=== PATIENT | female | born 1970 | race Caucasian/White ===

== ENCOUNTER → 2016-06-26 | Outpatient (CLI) | payer OTHER | LOC: HYPER 05-15 11:36 | DX: E11.622 Type 2 diabetes mellitus with other skin ulcer (principal); I87.2 Venous insufficiency (chronic) (peripheral); L97.221 Non-pressure chronic ulcer of left calf limited to breakdown of skin; L97.211 Non-pressure chronic ulcer of right calf limited to breakdown of skin; I10 Essential (primary) hypertension; L92.1 Necrobiosis lipoidica, not elsewhere classified; J45.909 Unspecified asthma, uncomplicated; F31.9 Bipolar disorder, unspecified; M19.90 Unspecified osteoarthritis, unspecified site; Z79.4 Long term (current) use of insulin ==

== ENCOUNTER → 2016-07-31 | Outpatient (CLI) | payer OTHER | LOC: HYPER 07-24 07:06 | DX: E11.622 Type 2 diabetes mellitus with other skin ulcer (principal); L97.811 Non-pressure chronic ulcer of other part of right lower leg limited to breakdown of skin; L97.821 Non-pressure chronic ulcer of other part of left lower leg limited to breakdown of skin; L97.211 Non-pressure chronic ulcer of right calf limited to breakdown of skin; L97.221 Non-pressure chronic ulcer of left calf limited to breakdown of skin; I10 Essential (primary) hypertension; L92.1 Necrobiosis lipoidica, not elsewhere classified; J45.909 Unspecified asthma, uncomplicated; F31.9 Bipolar disorder, unspecified; M19.90 Unspecified osteoarthritis, unspecified site; Z79.4 Long term (current) use of insulin ==

== ENCOUNTER → 2016-08-21 | Outpatient (CLI) | payer OTHER | LOC: HYPER 07:05 | DX: E11.622 Type 2 diabetes mellitus with other skin ulcer (principal); L97.821 Non-pressure chronic ulcer of other part of left lower leg limited to breakdown of skin; L97.811 Non-pressure chronic ulcer of other part of right lower leg limited to breakdown of skin; L97.221 Non-pressure chronic ulcer of left calf limited to breakdown of skin; L97.211 Non-pressure chronic ulcer of right calf limited to breakdown of skin; I10 Essential (primary) hypertension; J45.909 Unspecified asthma, uncomplicated; M19.90 Unspecified osteoarthritis, unspecified site; F31.9 Bipolar disorder, unspecified; Z79.4 Long term (current) use of insulin; Z87.01 Personal history of pneumonia (recurrent) ==

== ENCOUNTER → 2016-09-25 | Outpatient (CLI) | payer OTHER | LOC: HYPER 09-24 14:58 | DX: E11.622 Type 2 diabetes mellitus with other skin ulcer (principal); I87.2 Venous insufficiency (chronic) (peripheral); L97.211 Non-pressure chronic ulcer of right calf limited to breakdown of skin; L97.221 Non-pressure chronic ulcer of left calf limited to breakdown of skin; I10 Essential (primary) hypertension; L92.1 Necrobiosis lipoidica, not elsewhere classified; J45.909 Unspecified asthma, uncomplicated; F31.9 Bipolar disorder, unspecified; M19.90 Unspecified osteoarthritis, unspecified site; Z79.4 Long term (current) use of insulin ==

== ENCOUNTER → 2016-11-13 | Outpatient (CLI) | payer OTHER | LOC: HYPER 11-11 06:39 | DX: E11.622 Type 2 diabetes mellitus with other skin ulcer (principal); L97.821 Non-pressure chronic ulcer of other part of left lower leg limited to breakdown of skin; L97.811 Non-pressure chronic ulcer of other part of right lower leg limited to breakdown of skin; L97.221 Non-pressure chronic ulcer of left calf limited to breakdown of skin; L97.211 Non-pressure chronic ulcer of right calf limited to breakdown of skin; I87.2 Venous insufficiency (chronic) (peripheral); L92.1 Necrobiosis lipoidica, not elsewhere classified; J45.909 Unspecified asthma, uncomplicated; M19.90 Unspecified osteoarthritis, unspecified site; F31.9 Bipolar disorder, unspecified; Z79.4 Long term (current) use of insulin; Z87.01 Personal history of pneumonia (recurrent) ==

== ENCOUNTER → 2017-03-10 | Outpatient (CLI) | payer OTHER | LOC: HYPER 01-30 16:52 | DX: E11.622 Type 2 diabetes mellitus with other skin ulcer (principal); L97.211 Non-pressure chronic ulcer of right calf limited to breakdown of skin; L97.221 Non-pressure chronic ulcer of left calf limited to breakdown of skin; I10 Essential (primary) hypertension; J45.909 Unspecified asthma, uncomplicated; L92.1 Necrobiosis lipoidica, not elsewhere classified; M19.90 Unspecified osteoarthritis, unspecified site; F31.9 Bipolar disorder, unspecified; Z79.4 Long term (current) use of insulin ==

== ENCOUNTER → 2017-04-11 | Outpatient (CLI) | payer OTHER | LOC: HYPER 07:57 | DX: E11.622 Type 2 diabetes mellitus with other skin ulcer (principal); I87.2 Venous insufficiency (chronic) (peripheral); L97.811 Non-pressure chronic ulcer of other part of right lower leg limited to breakdown of skin; L97.821 Non-pressure chronic ulcer of other part of left lower leg limited to breakdown of skin; I10 Essential (primary) hypertension; L92.1 Necrobiosis lipoidica, not elsewhere classified; J45.909 Unspecified asthma, uncomplicated; M19.90 Unspecified osteoarthritis, unspecified site; F31.9 Bipolar disorder, unspecified; Z79.4 Long term (current) use of insulin ==

== ENCOUNTER → 2017-06-17 | Outpatient (CLI) | payer OTHER | LOC: HYPER 05-07 14:28 | DX: E11.622 Type 2 diabetes mellitus with other skin ulcer (principal); L97.811 Non-pressure chronic ulcer of other part of right lower leg limited to breakdown of skin; L97.821 Non-pressure chronic ulcer of other part of left lower leg limited to breakdown of skin; I87.2 Venous insufficiency (chronic) (peripheral); I10 Essential (primary) hypertension; L92.1 Necrobiosis lipoidica, not elsewhere classified; F31.9 Bipolar disorder, unspecified; J45.909 Unspecified asthma, uncomplicated; M19.90 Unspecified osteoarthritis, unspecified site; Z79.4 Long term (current) use of insulin ==

== ENCOUNTER → 2017-08-19 | Outpatient (CLI) | payer OTHER | LOC: HYPER 07:00 | DX: E11.622 Type 2 diabetes mellitus with other skin ulcer (principal); L97.811 Non-pressure chronic ulcer of other part of right lower leg limited to breakdown of skin; L97.821 Non-pressure chronic ulcer of other part of left lower leg limited to breakdown of skin; L92.1 Necrobiosis lipoidica, not elsewhere classified; I10 Essential (primary) hypertension; J45.909 Unspecified asthma, uncomplicated; F31.9 Bipolar disorder, unspecified; M19.90 Unspecified osteoarthritis, unspecified site; Z79.4 Long term (current) use of insulin ==

== ENCOUNTER → 2017-10-15 | Outpatient (CLI) | payer OTHER | LOC: HYPER 06:53 | DX: E11.622 Type 2 diabetes mellitus with other skin ulcer (principal); L97.822 Non-pressure chronic ulcer of other part of left lower leg with fat layer exposed; L97.812 Non-pressure chronic ulcer of other part of right lower leg with fat layer exposed; L92.1 Necrobiosis lipoidica, not elsewhere classified; I10 Essential (primary) hypertension; J45.909 Unspecified asthma, uncomplicated; F31.9 Bipolar disorder, unspecified; M19.90 Unspecified osteoarthritis, unspecified site; Z79.4 Long term (current) use of insulin ==

== ENCOUNTER → 2018-05-29 | Outpatient (CLI) | payer OTHER | LOC: HYPER 05-06 10:16 | DX: E11.622 Type 2 diabetes mellitus with other skin ulcer (principal); L97.822 Non-pressure chronic ulcer of other part of left lower leg with fat layer exposed; L97.812 Non-pressure chronic ulcer of other part of right lower leg with fat layer exposed; L92.1 Necrobiosis lipoidica, not elsewhere classified; I10 Essential (primary) hypertension; Z79.4 Long term (current) use of insulin ==

== ENCOUNTER → 2018-06-22 | Outpatient (CLI) | payer OTHER | LOC: HYPER 06-17 06:38 | DX: E11.622 Type 2 diabetes mellitus with other skin ulcer (principal); L97.822 Non-pressure chronic ulcer of other part of left lower leg with fat layer exposed; L97.812 Non-pressure chronic ulcer of other part of right lower leg with fat layer exposed; L92.1 Necrobiosis lipoidica, not elsewhere classified; I10 Essential (primary) hypertension; I87.2 Venous insufficiency (chronic) (peripheral); M19.90 Unspecified osteoarthritis, unspecified site; F31.9 Bipolar disorder, unspecified; Z79.4 Long term (current) use of insulin; Z79.01 Long term (current) use of anticoagulants ==

== ENCOUNTER → 2019-04-23 | Outpatient (CLI) | payer OTHER | LOC: HYPER 09:53 | DX: E11.622 Type 2 diabetes mellitus with other skin ulcer (principal); L97.822 Non-pressure chronic ulcer of other part of left lower leg with fat layer exposed; L97.812 Non-pressure chronic ulcer of other part of right lower leg with fat layer exposed; E11.621 Type 2 diabetes mellitus with foot ulcer; L89.890 Pressure ulcer of other site, unstageable; L97.521 Non-pressure chronic ulcer of other part of left foot limited to breakdown of skin; L92.1 Necrobiosis lipoidica, not elsewhere classified; L84 Corns and callosities; I10 Essential (primary) hypertension; J45.909 Unspecified asthma, uncomplicated; M19.90 Unspecified osteoarthritis, unspecified site; F31.9 Bipolar disorder, unspecified; Z79.4 Long term (current) use of insulin ==

== ENCOUNTER → 2019-10-11 | Outpatient (CLI) | payer OTHER | LOC: HYPER 09:44 | PROVIDERS: ATTEND Emergency Medicine | DX: E11.622 Type 2 diabetes mellitus with other skin ulcer (principal); L97.822 Non-pressure chronic ulcer of other part of left lower leg with fat layer exposed; L97.812 Non-pressure chronic ulcer of other part of right lower leg with fat layer exposed; L84 Corns and callosities; L92.1 Necrobiosis lipoidica, not elsewhere classified; I10 Essential (primary) hypertension; E66.01 Morbid (severe) obesity due to excess calories; J45.909 Unspecified asthma, uncomplicated; M19.90 Unspecified osteoarthritis, unspecified site; F31.9 Bipolar disorder, unspecified; Z79.4 Long term (current) use of insulin; Z68.41 Body mass index [BMI] 40.0-44.9, adult ==

== ENCOUNTER → 2020-03-06 | Outpatient (CLI) | payer OTHER | LOC: HYPER 10:03 | PROVIDERS: ATTEND Emergency Medicine Emergency Medical Services | DX: E11.622 Type 2 diabetes mellitus with other skin ulcer (principal); L97.822 Non-pressure chronic ulcer of other part of left lower leg with fat layer exposed; L97.812 Non-pressure chronic ulcer of other part of right lower leg with fat layer exposed; L92.1 Necrobiosis lipoidica, not elsewhere classified; L84 Corns and callosities; I87.8 Other specified disorders of veins; I10 Essential (primary) hypertension; E66.01 Morbid (severe) obesity due to excess calories; J45.909 Unspecified asthma, uncomplicated; M19.90 Unspecified osteoarthritis, unspecified site; F31.9 Bipolar disorder, unspecified; Z79.4 Long term (current) use of insulin; Z68.41 Body mass index [BMI] 40.0-44.9, adult ==

== ENCOUNTER → 2020-12-08 | Outpatient (CLI) | payer OTHER | LOC: HYPER 07:43 | PROVIDERS: ATTEND Emergency Medicine Emergency Medical Services | DX: E11.622 Type 2 diabetes mellitus with other skin ulcer (principal); L97.822 Non-pressure chronic ulcer of other part of left lower leg with fat layer exposed; L97.812 Non-pressure chronic ulcer of other part of right lower leg with fat layer exposed; L92.1 Necrobiosis lipoidica, not elsewhere classified; C44.501 Unspecified malignant neoplasm of skin of breast; J45.909 Unspecified asthma, uncomplicated; I10 Essential (primary) hypertension; M19.90 Unspecified osteoarthritis, unspecified site; F31.9 Bipolar disorder, unspecified; Z85.3 Personal history of malignant neoplasm of breast; Z98.890 Other specified postprocedural states; Z79.4 Long term (current) use of insulin; Z87.01 Personal history of pneumonia (recurrent); Z90.89 Acquired absence of other organs ==